=== PATIENT | male | born 1970 | race Caucasian/White ===

== ENCOUNTER → 2019-02-16 | Outpatient (CLI) | payer BC | LOC: LAB 14:01 → LAB SHORT 14:01 | DX: L02.92 Furuncle, unspecified (principal); D48.5 Neoplasm of uncertain behavior of skin; L82.0 Inflamed seborrheic keratosis | CPT/HCPCS: 87070; 87205 ==

== ENCOUNTER 2020-06-15 20:10 | Emergency (ER) | payer BC ==
[~2020-06-15] VITALS: Ht 177.8 cm; Wt 108.9 kg
[2020-06-15] MEDS ORDERED: AMOCLA875 PO (22:13)
== END 2020-06-15 22:30 | disposition home or self-care (01) ==
LOC: ER 20:10
DX: S61.012A Laceration without foreign body of left thumb without damage to nail, initial encounter (principal); Z23 Encounter for immunization; W45.8XXA Other foreign body or object entering through skin, initial encounter
CPT/HCPCS: 73140; 90471; 90714; 99283-25; A9270; A9270-GY